=== PATIENT | female | born 1990 | race Caucasian/White ===

== ENCOUNTER 2016-06-14 14:37 | Emergency (ER) | payer SELFPAY ==
[~2016-06-14] VITALS: Ht 152.4 cm; Wt 80.0 kg
[2016-06-14 14:38] VITALS: BP 123/55; PULSE 94; RESP 16; TEMP 98; O2SAT 96
--- NOTE | 2016-06-14 15:11 | PD ---
Physical Exam Date Seen by Provider: Jun 14, 2016 Time Seen by Provider: 15:07 Narrative Patient seen in triage with 2 week history itchy raised patchy rash which she thoughtwas from a laundy detergent. Patient has been taking Benadryl without improvement. No History Excema or Psoriasis. Vital Signs Stable. Patient awaiting Bed Placement. Data Data Last Documented VS Vital Signs Date Time Temp Pulse Resp B/P Pulse Ox O2 Delivery O2 Flow Rate FiO2 06/14/16 14:38 98.0 94 16 123/55 96 Room Air [facility] Medical Record Reviewed: Yes Supervised Visit with NIELS: Yes Condition: Stable Surendra Booker Jun 14, 2016 15:11
[2016-06-14] MEDS ORDERED: diphenhydrAMINE HCL 50 MG CAP PO ONE (15:45)
[2016-06-14] MEDS ORDERED: FAMOTIDINE 20 MG TAB PO ONE (15:45)
[2016-06-14] MEDS ORDERED: CEPHALEXIN MONOHYDRATE 500 MG CAP PO ONE (15:45)
[2016-06-14] MEDS ORDERED: predniSONE 20 MG TAB PO ONE (15:45)
[2016-06-14] MEDS ORDERED: PRED20 PO (16:16)
[2016-06-14] MEDS ORDERED: CEPH-460 PO (16:16)
[2016-06-14] MEDS ORDERED: BACT2OIN TOPICAL (16:17)
--- NOTE | 2016-06-14 16:17 | PD ---
HPI Chief Complaint: Skin Problem Time Seen by Provider: 15:35 Travel History International Travel<30 days: No Contact w/Intl Traveler<30days: No Traveled to known affect area: No History of Present Illness HPI Patient is a 26-year-old female who presents to emergency room for evaluation of rash for the past 2 weeks. Patient reports that she noticed a rash to her body for the past 2 weeks. Patient denies any new detergents, lotions or creams , denies any new foods. Reports that she feels as if she was bit by a bug. Patient with no fevers or chills at this time, patient here for evaluation of possible scabies. PFSH Past Medical History ?: Not LMP: 06/01/16 Social History Alcohol Use: No Tobacco Use: No Substance Use: No Allergies-Medications (Allergen,Severity, Reaction): Coded Allergies: No Known Allergies (Unverified , 06/14/16) Reported Meds & Prescriptions Reported Meds & Active Scripts Active Bactroban Topical (Mupirocin) 2% Oint 1 Appl TOPICAL BID Prednisone 20 Mg Tab 20 Mg PO BID Keflex (Cephalexin) 500 Mg Cap 500 Mg PO Q6H 7 Days Review of Systems General / Constitutional: No: Fever Eyes: No: Visual changes HENT: No: Headaches Cardiovascular: No: Chest Pain or Discomfort Respiratory: No: Shortness of Breath Gastrointestinal: No: Abdominal Pain Genitourinary: No: Dysuria Musculoskeletal: No: Pain Skin: Positive Rash, Positive Itching Neurologic: No: Weakness Psychiatric: No: Depression Endocrine: No: Polydipsia Hematologic/Lymphatic: No: Easy Bruising Physical Exam Narrative GENERAL: No acute distress, nontoxic SKIN: Focused skin assessment warm/dry. Patient with no petechiae or purpura. Patient with small urticaria to her chest and abdomen as well extremities. Patient with no indurations or abscess or bites between her digits, no drainage , pt has been scratching the bites on her skin, it appears that there are some areas of inflammation concerning for infection with no obvious drainage HEAD: Atraumatic. Normocephalic. CARDIOVASCULAR: Regular rate and rhythm. No murmur appreciated. RESPIRATORY: No accessory muscle use. Clear to auscultation. Breath sounds equal bilaterally. GASTROINTESTINAL: Abdomen soft, non-tender, nondistended. Hepatic and splenic margins not palpable. MUSCULOSKELETAL: No obvious deformities. No clubbing. No cyanosis. No edema. PSYCHIATRIC: Appropriate mood and affect; insight and judgment normal. Data Data Last Documented VS Vital Signs Date Time Temp Pulse Resp B/P Pulse Ox O2 Delivery O2 Flow Rate FiO2 06/14/16 14:38 98.0 94 16 123/55 96 Room Air Orders Diphenhydramine (Benadryl) (06/14/16 15:45) Prednisone (Deltasone) (06/14/16 15:45) Famotidine (Pepcid) (06/14/16 15:45) Cephalexin (Keflex) (06/14/16 15:45) MDM Medical Decision Making Medical Screen Exam Complete: Yes Emergency Medical Condition: Yes Interpretation(s) Vital Signs Date Time Temp Pulse Resp B/P Pulse Ox O2 Delivery O2 Flow Rate FiO2 06/14/16 14:38 98.0 94 16 123/55 96 Room Air Differential Diagnosis dermatitis, skin infection Narrative Course Patient is a 26 year old female who presents to ER with c/o of skin infection/ pruritus. Patient appears to have bedbugs, I am concerned for underlying infection as patient has been scratching these bites and there are areas of redness. We'll cover patient with Keflex. We'll treat with steroids and keflex. She will follow-up with pcp and dermatolgist as outpatient. She will return to emergency room as needed. 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
== END 2016-06-14 16:50 | disposition home or self-care (01) ==
LOC: NEPB 14:37
DX: L30.9 Dermatitis, unspecified (principal)
CPT/HCPCS: 99282; J7512; Q0163